=== PATIENT | female | born 1930 | race African-American/Black ===

== ENCOUNTER 2016-10-08 10:13 | Day surgery (SDC) | payer BC ==
--- NOTE | ~2016-10-08 | EGD ---
EGD REPORT [facility] [address] [place] [address] NAME: CAR KRISHNA : [birth year] [place] : [place] [facility] [place] PAT#: [id number] AGE: 85 ADM/REG DATE : 10/08/16 MR#: [id number] REPORT SERV DATE: 10/08/16 DICTATED BY: TEJA SMITH DATE: 10/08/16 REPORT STATUS : Draft TRANSCRIBED BY: [employer] DATE: 10/08/16 [facility] Patient Name: Car Krishna Date of : 1930 Attending MD: CHINO SMITH MD Procedure Date No Time: 10/08/2016 Procedure: Upper GI endoscopy Indications: Dysphagia, Gastro-esophageal reflux disease Referring MD: JANINE CYR MD Medicines: See the Anesthesia note for documentation of the administered medications Complications: No immediate complications. Estimated blood loss: None. Procedure: Pre-Anesthesia Assessment: - ASA Grade Assessment: III - A patient with severe systemic disease. - Prior to the procedure, a History and Physical was performed, and patient medications and allergies were reviewed. The patient's tolerance of previous anesthesia was also reviewed. The risks and benefits of the procedure and the sedation options and risks were discussed with the patient. All questions were answered, and informed consent was obtained. Prior Anticoagulants: The patient has taken no previous anticoagulant or antiplatelet agents. After reviewing the risks and benefits, the patient was deemed in satisfactory condition to undergo the procedure. After obtaining informed consent, the endoscope was passed under direct vision. Throughout the procedure, the patient's blood pressure, pulse, and oxygen saturations were monitored continuously. The GIF [id number] was introduced through the mouth, and advanced to the second part of duodenum. The upper GI endoscopy was accomplished without difficulty. The patient tolerated the procedure well. Findings: Diffuse mild inflammation characterized by congestion (edema) and erythema was found in the duodenal bulb. The exam of the duodenum was otherwise normal. A small hiatus hernia was present. No other significant abnormalities were identified in a careful examination of the stomach. A non-obstructing Schatzki ring (acquired) was found at the gastroesophageal junction. A guidewire was placed and the scope was withdrawn. Dilation was performed with a Savary dilator with no EGD REPORT [address] [address] NAME: CAR KRISHNA : [birth year] [place] : [place] [facility] [place] PAT#: [id number] AGE: 85 ADM/REG DATE : 10/08/16 MR#: [id number] REPORT SERV DATE: 10/08/16 DICTATED BY: TEJA SMITH DATE: 10/08/16 REPORT STATUS : Draft TRANSCRIBED BY: [employer] DATE: 10/08/16 resistance at 54 Fr. Estimated blood loss: none. No other significant abnormalities were identified in a careful examination of the esophagus. Impression: - Duodenitis. - Hiatus hernia. - Non-obstructing Schatzki ring. Dilated. Recommendation: - Patient has a contact number available for emergencies. The signs and symptoms of potential delayed complications were discussed with the patient. Return to normal activities tomorrow. Written discharge instructions were provided to the patient. - Regular diet. - Continue present medications. - Discharge patient to home. Procedure Code(s): --- Professional --- 95808, Esophagogastroduodenoscopy, flexible, transoral; with insertion of guide wire followed by passage of dilator(s) through esophagus over guide wire Diagnosis Code(s): --- Professional --- K29.80, Duodenitis without bleeding K44.9, Diaphragmatic hernia without obstruction or gangrene K22.2, Esophageal obstruction R13.10, Dysphagia, unspecified K21.9, Gastro-esophageal reflux disease without esophagitis CPT copyright 2013 [employer]. All rights reserved. The codes documented in this report are preliminary and upon senior care manager review may be revised to meet current compliance requirements. CHINO SMITH MD 10/08/2016 12:20 PM This report has been signed electronically. Number of Addenda: 0 Note Initiated On: 10/08/2016 12:00 PM Scope Withdrawal Time 0 hours 0 minutes 0 seconds
[~2016-10-08 10:13] MED LIST: ASAB PO; CILOSTAZOL50 MG PO; COREG6 PO; CYANO1000T PO; DIOVAN HCT160 MG/25 PO; GLUCPH PO; MAXIMUM D3; MAXIMUM D3 PO; NOVOLOGMIX SC; NOVOPENMIX SC; PRAVACHOL40 MG PO; PRILO PO; SYN075 PO; TRICOR48 PO; ULTRACET PO; ULTRAM50 PO; VIT D 3; XALAT OPH; Z100 PO
== END 2016-10-08 23:59 | disposition home or self-care (01) ==
LOC: DMU 10:13
PROVIDERS: Internal Medicine Gastroenterology
PROC: 0D748ZZ Dilation of Esophagogastric Junction, Via Natural or Artificial Opening Endoscopic (ICD-10-PCS; principal; 2016-10-08 12:00)
DX: K29.80 Duodenitis without bleeding (principal); K44.9 Diaphragmatic hernia without obstruction or gangrene; K22.2 Esophageal obstruction; I10 Essential (primary) hypertension; E11.9 Type 2 diabetes mellitus without complications; R13.10 Dysphagia, unspecified; K21.9 Gastro-esophageal reflux disease without esophagitis; Z98.41 Cataract extraction status, right eye; Z98.42 Cataract extraction status, left eye; Z96.1 Presence of intraocular lens; Z90.89 Acquired absence of other organs; Z90.710 Acquired absence of both cervix and uterus; Z90.49 Acquired absence of other specified parts of digestive tract; Z95.1 Presence of aortocoronary bypass graft; D64.9 Anemia, unspecified; E03.9 Hypothyroidism, unspecified; K30 Functional dyspepsia; M19.90 Unspecified osteoarthritis, unspecified site; I25.10 Atherosclerotic heart disease of native coronary artery without angina pectoris; H91.90 Unspecified hearing loss, unspecified ear; H40.9 Unspecified glaucoma; Z87.891 Personal history of nicotine dependence; Z88.6 Allergy status to analgesic agent; L23.0 Allergic contact dermatitis due to metals; Z79.4 Long term (current) use of insulin; Z79.899 Other long term (current) drug therapy; Z79.82 Long term (current) use of aspirin
CPT/HCPCS: 82962